=== PATIENT | male | born 1940 | race Caucasian/White ===

== ENCOUNTER 2018-05-26 22:24 | Emergency (ER) | payer MEDICARE ==
[~2018-05-26] VITALS: Ht 177.8 cm; Wt 96.9 kg
[~2018-05-26 22:24] MED LIST: ENOX30SY10 SQ; NORCO10T PO; RAMI5CAP65 PO; ZOC5T PO
[2018-05-26 23:30] VITALS: BP 151/88
[2018-05-26 23:47] LABS: BASOPHILS % (AUTO) 0.3 % (0-1); EOSINOPHILS # (AUTO) 0.4 X10'3 (0-0.9); HEMATOCRIT 43.3 % (42.0-52.0); HEMOGLOBIN 14.4 g/dl (14.0-17.9); LYMPHOCYTES # (AUTO) 1.7 X10'3 (1.1-4.8); LYMPHOCYTES % (AUTO) 14.2 % (21-51); MEAN CORPUSCULAR HEMOGLOBIN 32.7 PG (27.0-31.0); MEAN CORPUSCULAR HGB CONC 33.3 % (33.0-36.5); MEAN PLATELET VOLUME 8.7 FL (7.4-10.4); MONOCYTES # (AUTO) 0.7 X10'3 (0-0.9); MONOCYTES % (AUTO) 5.5 % (2-12); NEUTROPHILS # (AUTO) 9.3 X10'3 (1.8-7.7); PLATELET COUNT 217 X10'3 (140-440); RED BLOOD COUNT 4.42 X10'6 (4.70-6.10); RED CELL DISTRIBUTION WIDTH 13.1 % (11.5-14.5)
[2018-05-26 23:58] LABS: ALKALINE PHOSPHATASE 72 IU/L (46-116)
[2018-05-27] MEDS ORDERED: dexamethasone sod phosphate 10mg/ml inj IV STA (00:05)
[2018-05-27] MEDS ORDERED: CefTRIAXone 2gm/D5W 50ml 50 ML IV ONE (00:05)
[2018-05-27] MEDS ORDERED: ipratropium/albuterol 3ml nebule NEB ONE (00:05)
[2018-05-27] MEDS ORDERED: DOXY100C43 PO (00:07)
[2018-05-27] MEDS ORDERED: ALBU8HFA PO (00:07)
[2018-05-27] MEDS ORDERED: PRED20TA PO (00:07)
[2018-05-27 00:08] LABS: ALANINE AMINOTRANSFERASE 31 U/L (12-78); ALBUMIN 3.6 G/DL (3.4-5.0); ALBUMIN/GLOBULIN RATIO 0.9 (1.1-1.5); ANION GAP 7 (8-16); ASPARTATE AMINO TRANSFERASE 17 U/L (10-37); BILIRUBIN,TOTAL 0.3 MG/DL (0.1-1.0); BLOOD UREA NITROGEN 16 MG/DL (7-18); BUN/CREATININE RATIO 16.2 (5.4-32.0); CALCIUM 8.7 MG/DL (8.5-10.1); CHLORIDE 102 MMOL/L (99-107); CREATININE 0.99 MG/DL (0.60-1.10); GLUCOSE 129 MG/DL (70-104); POTASSIUM 3.8 MMOL/L (3.5-5.1); SODIUM 142 MMOL/L (135-145); TOTAL CARBON DIOXIDE 32.9 MMOL/L (24-32); TOTAL PROTEIN 7.5 G/DL (6.4-8.2); eGFR 73 ML/MIN
== END 2018-05-27 02:03 | disposition home or self-care (01) ==
LOC: ER 22:25
DX: J18.9 Pneumonia, unspecified organism (principal); E78.00 Pure hypercholesterolemia, unspecified; I10 Essential (primary) hypertension; Z79.899 Other long term (current) drug therapy
CPT/HCPCS: 36415; 71046; 80053; 83605; 85025; 87040; 94640; 94760; 96365; 96375; 99284; J0696; J1100

== ENCOUNTER 2019-11-04 12:15 | Inpatient (IN) | payer MEDICARE ==
[~2019-11-04] VITALS: Ht 177.8 cm; Wt 94.1 kg
[~2019-11-04 12:15] MED LIST changes: +SIMV5TAB58 PO; -ZOC5T PO
[2019-11-04 13:18] LABS: BASOPHILS % (AUTO) 0.2 % (0-1); EOSINOPHILS % (AUTO) 0 % (0-6); HEMATOCRIT 41.1 % (42.0-52.0); HEMOGLOBIN 14.2 g/dl (14.0-17.9); LYMPHOCYTES # (AUTO) 0.9 X10'3 (1.1-4.8); MEAN CORPUSCULAR HEMOGLOBIN 33.2 PG (27.0-31.0); MEAN CORPUSCULAR HGB CONC 34.6 g/dL (33.0-36.5); MEAN PLATELET VOLUME 9.4 FL (7.4-10.4); MONOCYTES # (AUTO) 0.4 X10'3 (0-0.9); MONOCYTES % (AUTO) 5.4 % (2-12); NEUTROPHILS # (AUTO) 6.8 X10'3 (1.8-7.7); NEUTROPHILS % (AUTO) 83.4 % (42-75); PLATELET COUNT 151 X10'3 (140-440); RED BLOOD COUNT 4.28 X10'6 (4.70-6.10); WHITE BLOOD COUNT 8.1 X10'3 (4.5-11.0)
[2019-11-04 13:28] LABS: PARTIAL THROMBOPLASTIN TIME 37 SECONDS (22-32)
[2019-11-04 13:29] LABS: ALANINE AMINOTRANSFERASE 35 U/L (12-78); ALBUMIN 3.6 G/DL (3.4-5.0); ALBUMIN/GLOBULIN RATIO 0.8 (1.1-1.5); ALKALINE PHOSPHATASE 52 IU/L (46-116); ANION GAP 7 (8-16); ASPARTATE AMINO TRANSFERASE 38 U/L (10-37); BILIRUBIN,TOTAL 0.7 MG/DL (0.1-1.0); BLOOD UREA NITROGEN 20 MG/DL (7-18); BUN/CREATININE RATIO 16.5 (5.4-32.0); CALCIUM 8.8 MG/DL (8.5-10.1); CHLORIDE 95 MMOL/L (99-107); CREATININE 1.21 MG/DL (0.60-1.10); GLUCOSE 114 MG/DL (70-104); POTASSIUM 3.5 MMOL/L (3.5-5.1); SODIUM 132 MMOL/L (135-145); TOTAL CARBON DIOXIDE 29.6 MMOL/L (24-32); eGFR 58 ML/MIN
[2019-11-04] MEDS ORDERED: ASPI-1265 PO (14:28)
[2019-11-04] MEDS ORDERED: OMEG-79 PO (14:28)
[2019-11-04] MEDS ORDERED: acetaminophen 325mg tablet PO ONE (14:30)
[2019-11-04] MEDS ORDERED: HCTZ25T PO (14:34)
--- NOTE | 2019-11-04 14:46 | NUR ---
Spoke with Holly Savage request O2 be set up so patient can be discharged home from ED, will attempt to obtain Home O2, patient does not have underlying chronic respiratory condition
--- NOTE | 2019-11-04 14:47 | NUR ---
Spoke with Xander explained that patient did not have qualifying O2sat at this time to qualify for home O2, asked to attempt to ambulate patient to see if O2sats drop below 88%, states patient is being admitted
--- NOTE | 2019-11-04 15:06 | NUR ---
Notified by Xander that patient is discharging home and requires home O2, spoke with Aline at [facility] and patient will qualify for home O2 without needing underlying respiratory condition due to COVID, recommends patient to have triology, working on orders
--- NOTE | 2019-11-04 16:05 | NUR ---
Jj coker [facility] in ER at Bed 2 providing teaching and O2 equipment for home use
--- NOTE | 2019-11-04 16:09 | NUR ---
Per Holly Sullivan, per Dr. Pitt patient will be admitted
[2019-11-04 16:20] LABS: ABG BASE EXCESS 2.5 mmol/L (-2.0-3.0); ABG HCO3 25.9 mmol/L (22.0-26.0); ABG OXYGEN SATURATION 88.7 % (95-98); ABG PCO2 (T) 36.8 mmHg (35.0-45.0); ABG PO2 (T) 50.4 mmHg (83-108); ALLEN'S TEST POSITIVE; FCOHb 0.9 % (0.5-1.5); FO2Hb 87.9 % (94-100); PATIENT TEMPERATURE 37.4; TOTAL HEMOGLOBIN 14.1 G/dl (14.0-17.9)
--- NOTE | 2019-11-04 16:45 | NUR ---
DR AARON AT BEDSIDE EVALUATING PT.
[2019-11-04] MEDS ORDERED: REMDESIVIR INJ 200 MG in normal saline 100ml IV soln 100 ML IV ONE (17:00)
[2019-11-04] MEDS ORDERED: magnesium 2GM in 50ml NS 50 ML IV PRN (17:05)
[2019-11-04] MEDS ORDERED: albuterol 2.5 MG/3 ML nebule NEB PRN (17:05)
[2019-11-04] MEDS ORDERED: magnesium Cl slow-release 64mg tablet PO PRN (17:05)
[2019-11-04] MEDS ORDERED: potassium Cl 20 mEq SR tablet PO PRN (17:05)
[2019-11-04] MEDS ORDERED: ondansetron/PF 4mg/2ml inj IV PRN (17:05)
[2019-11-04] MEDS ORDERED: potassium CL 10mEq/100ml bag 100 ML IV PRN ×2 (17:05)
[2019-11-04] MEDS ORDERED: magnesium 4gm in 100ml NS 100 ML IV PRN (17:05)
[2019-11-04 18:04] LABS: C-REACTIVE PROTEIN 20.88 MG/DL (0.0-0.5)
[2019-11-04 18:18] LABS: LACTATE DEHYDROGENASE 364 U/L (85-227)
[2019-11-04] MEDS: normal saline 1000ml 1,000 ML IV SCH (18:26)
--- NOTE | 2019-11-04 18:55 | NUR ---
RECEIVED PT FROM ER VIA ZANDRA RUDOLPH TO ROOM. ORIENTED TO ROM AND ROUTINE. ALERT AND ORIENTED. PT EDUCATED ON COVID ROOM AND NEG PRESSURE AIR SEUN. ISOLATION INSTRUCTIONS GIVEN. PT HAS SOME SOB WITH ACTIVITY. DRY COUGH. Addendum: 11/04/19 at 2057 by Davey Vazquez RN Amended: Links added.
[2019-11-04 19:15] VITALS: BP 133/72
--- NOTE | 2019-11-04 19:20 | NUR ---
pt amb in room ad ben, turns self iwth ease, skin check done, groin bilat redddened, gluteal fold reddened, pt states will clean self, wipes given. pt turns self freq. pt does not want to change pants, leaving pants on from home. 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 belongigns glasses wallte, denies to have locked in safe, no dentures, has cell phone no bookmaker's clerk, shirt pants, shoes socks. preffered pharmacy is [facility]. Addendum: 11/04/19 at 2014 by Davey Vazquez RN Amended: Links added.
[2019-11-04] MEDS: K and/or MAG REPLACEMENT MC SCH (20:00)
--- NOTE | 2019-11-04 20:15 | NUR ---
PHARMACY CALLED PT IS TO RECEIVE REMDESIVIR TONIGHT. MEDICATION IS NOT AVAILABLE AT THIS TIME. DR AARON IS TO BRING MEDICATION TO PHARMACY AND THEY WILL NOTIFY ME AND DISPENSE MED. DR. AARON IS AWARE. [facility]ARAM[facility] STATES WILL BE LATER TONIGHT.
[2019-11-04] MEDS: atorvastatin 10mg tablet PO SCH (20:21)
[2019-11-04] MEDS: enoxaparin 40mg/0.4ml syringe SUBCUT SCH (20:22)
--- NOTE | 2019-11-04 20:51 | NUR ---
ACOUSTICAL TILE DRILL PRESS OPERATORSHEBA MONET CALLED REPORT [phone] PT ADMIT ORDERS ARE FOR TELE PCU NO 3 SURGICAL, STATES PER STEM TEACHER PT TO BE ADMITTED TO SURGICAL. STEM TEACHER, SLATE ROOFER HELPER NOTIFIED, SLATE ROOFER HELPER NICOLE SPOKE WITH KOBE STEM TEACHER, THERE ARE NO COVID ROOM AVAILABLE ON TELE, SO PT IS TO BE ADMITTED HERE. ASKED THAT MD BE NOTIFIED TO HAVE ORDER CHANGED. WHEN TALKING TO CHIKI ON PHONE ASKED THAT SHE NOTIFY HOSPITALIST THAT NO ROOMS AVAILABLE ON TELE AND PT BEING TRANSFERRED TO A LOWER LEVEL OF CARE. RN STATES SHE WILL NOTIFY MD PRIOR TO TRANSFERING. THERE WAS NO NOTE MADE AND ORDER HAS NOT BEEN CHANGED. DR. MEDELLIN WAS NOTIFIED MAHI. Addendum: 11/04/19 at 2055 by Davey Vazquez RN Amended: Links added.
[2019-11-04 22:15] VITALS: BP 137/67
--- NOTE | 2019-11-04 22:20 | NUR ---
Pt had gotten out of bed amb to bathroom, states forgot about iv and pulled out, cannula intact. pt has bruise to iv site, covered with dressing, pt blood on arms, gown all over bathroom floor. partial bath given. Addendum: 11/05/19 at 0049 by Davey Vazquez RN Amended: Links added.
[2019-11-04] MEDS: acetaminophen 325mg tablet PO PRN (22:26)
--- NOTE | 2019-11-04 22:44 | NUR ---
pt did not have d dimer drawn in er today, lab is not available. Unable to get labs at this time, pt is difficult iv start. will attempt again. Addendum: 11/04/19 at 2245 by Davey Vazquez RN Amended: Links added.
[2019-11-04 23:20] VITALS: BP 109/64
[2019-11-05 04:00] VITALS: BP 124/69
[2019-11-05 04:21] LABS: BASOPHILS % (AUTO) 0.3 % (0-1); EOSINOPHILS % (AUTO) 0 % (0-6); HEMATOCRIT 38.1 % (42.0-52.0); HEMOGLOBIN 13.1 g/dl (14.0-17.9); LYMPHOCYTES # (AUTO) 1.3 X10'3 (1.1-4.8); LYMPHOCYTES % (AUTO) 18.4 % (21-51); MEAN CORPUSCULAR HEMOGLOBIN 33.2 PG (27.0-31.0); MEAN CORPUSCULAR HGB CONC 34.4 g/dL (33.0-36.5); MEAN CORPUSCULAR VOLUME 96.3 FL (78-98); MEAN PLATELET VOLUME 8.6 FL (7.4-10.4); MONOCYTES # (AUTO) 0.5 X10'3 (0-0.9); MONOCYTES % (AUTO) 7.8 % (2-12); NEUTROPHILS # (AUTO) 5.1 X10'3 (1.8-7.7); NEUTROPHILS % (AUTO) 73.5 % (42-75); PLATELET COUNT 148 X10'3 (140-440); RED BLOOD COUNT 3.95 X10'6 (4.70-6.10); RED CELL DISTRIBUTION WIDTH 13.2 % (11.5-14.5)
[2019-11-05 04:25] LABS: ANION GAP 6 (8-16); BLOOD UREA NITROGEN 21 MG/DL (7-18); BUN/CREATININE RATIO 18.3 (5.4-32.0); CALCIUM 8.1 MG/DL (8.5-10.1); CHLORIDE 98 MMOL/L (99-107); CREATININE 1.15 MG/DL (0.60-1.10); GLUCOSE 107 MG/DL (70-104); POTASSIUM 3.4 MMOL/L (3.5-5.1); SODIUM 134 MMOL/L (135-145); TOTAL CARBON DIOXIDE 29.6 MMOL/L (24-32); eGFR 62 ML/MIN
[2019-11-05 04:28] LABS: D-DIMER 2.41 MG/L FEU (0-0.50)
[2019-11-05] MEDS: acetaminophen 325mg tablet PO PRN ×2 (04:34→12:38)
--- NOTE | 2019-11-05 06:43 | NUR ---
Problems reprioritized. Patient report given, questions answered & plan of care reviewed with SHEBA PRATHER. Addendum: 11/05/19 at 0644 by Davey Vazquez RN Amended: Links added.
--- NOTE | 2019-11-05 07:09 | NUR ---
Patient in room [facility] 341. I have received report from Yumiko SCRUGGS and had the opportunity to ask questions and assume patient care.
[2019-11-05] MEDS: K and/or MAG REPLACEMENT MC SCH ×2 (08:00→20:00)
[2019-11-05] MEDS: HYDROchlorothiazide 25mg tablet PO SCH (08:55)
[2019-11-05] MEDS: aspirin 81mg tab.chew PO SCH (08:55)
[2019-11-05] MEDS: omega-3 acid ethyl esters 1GM capsule PO SCH (08:55)
[2019-11-05] MEDS: lisinopril 10 MG tablet PO SCH (08:55)
[2019-11-05] MEDS: enoxaparin 40mg/0.4ml syringe SUBCUT SCH (08:58)
[2019-11-05] MEDS: potassium Cl 20 mEq SR tablet PO PRN ×3 (09:05→21:02)
[2019-11-05 09:11] VITALS: BP 133/62
[2019-11-05] MEDS: normal saline 1000ml 1,000 ML IV SCH ×2 (09:29→15:28)
--- NOTE | 2019-11-05 13:53 | NUR ---
PAGER ID: [phone] MESSAGE: Sung surg [id number] Re: Patients in 340b and 341. Thanks Sung.
[2019-11-05] MEDS: guaiFENesin/codeine phos 10ml UD oral syrup PO PRN (17:14)
--- NOTE | 2019-11-05 18:26 | NUR ---
Problems reprioritized. Patient report given, questions answered & plan of care reviewed with Josey SCRUGGS.
--- NOTE | 2019-11-05 19:46 | NUR ---
Patient in room [facility] 341. I have received report from SHEBA Almaraz and had the opportunity to ask questions and assume patient care. Addendum: 11/05/19 at 1946 by Josey Ceballos RN Amended: Links added.
[2019-11-05 21:00] VITALS: BP 123/74
[2019-11-05] MEDS: REMDESIVIR IV SCH (21:02)
[2019-11-05] MEDS: NS IV SCH (21:02)
[2019-11-05] MEDS: atorvastatin 10mg tablet PO SCH (21:02)
[2019-11-05] MEDS: sod chloride 0.9% 10ml flush syringe IV SCH (21:03)
[2019-11-05 22:26] VITALS: BP 150/71
[2019-11-06 02:40] LABS: BASOPHILS % (AUTO) 0.6 % (0-1); EOSINOPHILS % (AUTO) 0 % (0-6); HEMOGLOBIN 12.5 g/dl (14.0-17.9); LYMPHOCYTES % (AUTO) 18.5 % (21-51); MEAN CORPUSCULAR HEMOGLOBIN 33.1 PG (27.0-31.0); MEAN CORPUSCULAR HGB CONC 34.6 g/dL (33.0-36.5); MEAN CORPUSCULAR VOLUME 95.5 FL (78-98); MEAN PLATELET VOLUME 8.5 FL (7.4-10.4); MONOCYTES # (AUTO) 0.5 X10'3 (0-0.9); MONOCYTES % (AUTO) 8.6 % (2-12); NEUTROPHILS # (AUTO) 3.9 X10'3 (1.8-7.7); NEUTROPHILS % (AUTO) 72.3 % (42-75); PLATELET COUNT 156 X10'3 (140-440); RED BLOOD COUNT 3.76 X10'6 (4.70-6.10); RED CELL DISTRIBUTION WIDTH 12.9 % (11.5-14.5); WHITE BLOOD COUNT 5.4 X10'3 (4.5-11.0)
[2019-11-06 02:42] LABS: ALBUMIN 2.6 G/DL (3.4-5.0); ANION GAP 8 (8-16); BLOOD UREA NITROGEN 18 MG/DL (7-18); BUN/CREATININE RATIO 17.8 (5.4-32.0); CALCIUM 7.9 MG/DL (8.5-10.1); CHLORIDE 100 MMOL/L (99-107); CREATININE 1.01 MG/DL (0.60-1.10); GLUCOSE 106 MG/DL (70-104); MAGNESIUM 2.1 MG/DL (1.5-2.4); POTASSIUM 3.6 MMOL/L (3.5-5.1); SODIUM 134 MMOL/L (135-145); TOTAL CARBON DIOXIDE 26.2 MMOL/L (24-32); eGFR 71 ML/MIN
--- NOTE | 2019-11-06 06:09 | NUR ---
Problems reprioritized. Patient report given, questions answered & plan of care reviewed with SHEBA Almaraz. Addendum: 11/06/19 at 0609 by Josey Ceballos RN Amended: Links added.
--- NOTE | 2019-11-06 06:16 | NUR ---
Patient in room [facility] 341. I have received report from Josey SCRUGGS and had the opportunity to ask questions and assume patient care.
[2019-11-06 07:00] VITALS: BP 123/67
[2019-11-06] MEDS: K and/or MAG REPLACEMENT MC SCH ×2 (08:00→20:00)
[2019-11-06] MEDS: HYDROchlorothiazide 25mg tablet PO SCH (09:06)
[2019-11-06] MEDS: aspirin 81mg tab.chew PO SCH (09:06)
[2019-11-06] MEDS: lisinopril 10 MG tablet PO SCH (09:06)
[2019-11-06] MEDS: enoxaparin 40mg/0.4ml syringe SUBCUT SCH (09:07)
[2019-11-06] MEDS: omega-3 acid ethyl esters 1GM capsule PO SCH (09:07)
[2019-11-06 12:15] LABS: ABG BASE EXCESS 1.7 mmol/L (-2.0-3.0); ABG HCO3 24.9 mmol/L (22.0-26.0); ABG OXYGEN SATURATION 93.4 % (95-98); ABG PCO2 (T) 34.7 mmHg (35.0-45.0); ABG PO2 (T) 64.7 mmHg (83-108); ALLEN'S TEST POSITIVE; FO2Hb 93.4 % (94-100); TOTAL HEMOGLOBIN 12.8 G/dl (14.0-17.9)
[2019-11-06 13:03] VITALS: BP 112/63
--- NOTE | 2019-11-06 18:00 | NUR ---
Patient in room [facility] 341. I have received report from Sung SCRUGGS and had the opportunity to ask questions and assume patient care.
--- NOTE | 2019-11-06 18:27 | NUR ---
Problems reprioritized. Patient report given, questions answered & plan of care reviewed with Jessika SCRUGGS.
[2019-11-06 19:11] VITALS: BP 132/65
[2019-11-06] MEDS: atorvastatin 10mg tablet PO SCH (21:00)
[2019-11-06] MEDS: REMDESIVIR IV SCH (22:27)
[2019-11-06] MEDS: NS IV SCH (22:27)
[2019-11-06] MEDS: sod chloride 0.9% 10ml flush syringe IV SCH (23:40)
[2019-11-07 00:06] VITALS: BP 118/62
--- NOTE | 2019-11-07 06:13 | NUR ---
Problems reprioritized. Patient report given, questions answered & plan of care reviewed with Manju SCRUGGS.
[2019-11-07 06:16] LABS: BASOPHILS % (AUTO) 0.5 % (0-1); EOSINOPHILS % (AUTO) 0.4 % (0-6); HEMATOCRIT 37.4 % (42.0-52.0); HEMOGLOBIN 13.1 g/dl (14.0-17.9); LYMPHOCYTES # (AUTO) 1.7 X10'3 (1.1-4.8); LYMPHOCYTES % (AUTO) 32.3 % (21-51); MEAN CORPUSCULAR HEMOGLOBIN 33.1 PG (27.0-31.0); MEAN CORPUSCULAR VOLUME 94.8 FL (78-98); MEAN PLATELET VOLUME 8.3 FL (7.4-10.4); MONOCYTES # (AUTO) 0.6 X10'3 (0-0.9); MONOCYTES % (AUTO) 11.4 % (2-12); NEUTROPHILS # (AUTO) 2.9 X10'3 (1.8-7.7); NEUTROPHILS % (AUTO) 55.4 % (42-75); PLATELET COUNT 188 X10'3 (140-440); RED BLOOD COUNT 3.94 X10'6 (4.70-6.10); RED CELL DISTRIBUTION WIDTH 13.4 % (11.5-14.5); WHITE BLOOD COUNT 5.2 X10'3 (4.5-11.0)
[2019-11-07 06:25] LABS: ALBUMIN 2.7 G/DL (3.4-5.0); ANION GAP 7 (8-16); BLOOD UREA NITROGEN 18 MG/DL (7-18); BUN/CREATININE RATIO 19.8 (5.4-32.0); C-REACTIVE PROTEIN 9.47 MG/DL (0.0-0.5); CALCIUM 8.2 MG/DL (8.5-10.1); CHLORIDE 100 MMOL/L (99-107); CREATININE 0.91 MG/DL (0.60-1.10); GLUCOSE 98 MG/DL (70-104); LACTATE DEHYDROGENASE 392 U/L (85-227); POTASSIUM 3.4 MMOL/L (3.5-5.1); SODIUM 135 MMOL/L (135-145); TOTAL CARBON DIOXIDE 28.5 MMOL/L (24-32); eGFR 81 ML/MIN
--- NOTE | 2019-11-07 06:29 | NUR ---
Patient in room [facility]ANI[facility] 341. I have received report from SHEBA Rosen and had the opportunity to ask questions and assume patient care.
[2019-11-07] MEDS: K and/or MAG REPLACEMENT MC SCH ×2 (08:00→19:04)
[2019-11-07 08:19] VITALS: BP 121/85
[2019-11-07] MEDS: potassium Cl 20 mEq SR tablet PO PRN ×2 (08:27→13:11)
[2019-11-07] MEDS: omega-3 acid ethyl esters 1GM capsule PO SCH (08:27)
[2019-11-07] MEDS: lisinopril 10 MG tablet PO SCH (08:27)
[2019-11-07] MEDS: HYDROchlorothiazide 25mg tablet PO SCH (08:27)
[2019-11-07] MEDS: aspirin 81mg tab.chew PO SCH (08:27)
[2019-11-07] MEDS: enoxaparin 40mg/0.4ml syringe SUBCUT SCH (08:28)
[2019-11-07] MEDS: guaiFENesin/codeine phos 10ml UD oral syrup PO PRN ×2 (13:15→22:05)
--- NOTE | 2019-11-07 13:15 | NUR ---
Initial: Pt admit with COVID-19 with hypoxemia. Per MD notes pt feeling better, breathing easier, and fever has improved. Pt on a regular diet documented with 75-100% PO intake throughout LOS meeting nutrient needs. LBM 11/05. No edema or wounds. No nutrition diagnosis at this time. Will continue to follow. Recommendations: 1) Continue regular diet 2) Bowel care PRN 3) Scaled wt per rx Addendum: 11/07/19 at [address] Amended: Links added.
[2019-11-07 13:21] VITALS: BP 113/72
[2019-11-07] MEDS ORDERED: potassium Cl 20 mEq SR tablet PO PRN ×2 (17:10)
[2019-11-07] MEDS ORDERED: magnesium Cl slow-release 64mg tablet PO PRN (17:10)
[2019-11-07] MEDS ORDERED: potassium CL 10mEq/100ml bag 100 ML IV PRN (17:10)
[2019-11-07] MEDS ORDERED: magnesium 4gm in 100ml NS 100 ML IV PRN (17:10)
[2019-11-07 17:29] VITALS: BP 118/66
--- NOTE | 2019-11-07 18:15 | NUR ---
Problems reprioritized. Patient report given, questions answered & plan of care reviewed with SHEBA Mcgee.
--- NOTE | 2019-11-07 20:12 | NUR ---
pt in no apparent distress, states he's feeling better since being admitted. dinner tray provided. plan of care for evening reviewed, will continue to monitor
[2019-11-07] MEDS: atorvastatin 10mg tablet PO SCH (21:00)
[2019-11-07] MEDS: NS IV SCH (22:11)
[2019-11-07] MEDS: REMDESIVIR IV SCH (22:11)
[2019-11-07] MEDS: sod chloride 0.9% 10ml flush syringe IV SCH (23:53)
[2019-11-08] VITALS: BP 97/62
[2019-11-08 00:24] VITALS: BP 98/66
--- NOTE | 2019-11-08 00:43 | NUR ---
patient in no distress, resting comfortably, no needs at this time. VSS, will continue to monitor
[2019-11-08] MEDS: guaiFENesin/codeine phos 10ml UD oral syrup PO PRN ×2 (05:20→21:30)
--- NOTE | 2019-11-08 05:32 | NUR ---
IV initiated, morning labs drawn. conferred needs with patient, none identified at this time. will continue to monitor
[2019-11-08 06:08] LABS: BASOPHILS % (AUTO) 0.5 % (0-1); EOSINOPHILS # (AUTO) 0.1 X10'3 (0-0.9); EOSINOPHILS % (AUTO) 1.9 % (0-6); HEMATOCRIT 39.8 % (42.0-52.0); HEMOGLOBIN 13.8 g/dl (14.0-17.9); LYMPHOCYTES # (AUTO) 1.5 X10'3 (1.1-4.8); LYMPHOCYTES % (AUTO) 32.1 % (21-51); MEAN CORPUSCULAR HEMOGLOBIN 32.7 PG (27.0-31.0); MEAN CORPUSCULAR HGB CONC 34.6 g/dL (33.0-36.5); MEAN CORPUSCULAR VOLUME 94.5 FL (78-98); MEAN PLATELET VOLUME 8.2 FL (7.4-10.4); MONOCYTES # (AUTO) 0.7 X10'3 (0-0.9); MONOCYTES % (AUTO) 14.5 % (2-12); NEUTROPHILS # (AUTO) 2.5 X10'3 (1.8-7.7); PLATELET COUNT 206 X10'3 (140-440); RED BLOOD COUNT 4.21 X10'6 (4.70-6.10); RED CELL DISTRIBUTION WIDTH 13.3 % (11.5-14.5); WHITE BLOOD COUNT 4.8 X10'3 (4.5-11.0)
[2019-11-08 06:09] LABS: ALANINE AMINOTRANSFERASE 67 U/L (12-78); ALBUMIN 2.7 G/DL (3.4-5.0); ALBUMIN/GLOBULIN RATIO 0.8 (1.1-1.5); ALKALINE PHOSPHATASE 48 IU/L (46-116); ANION GAP 5 (8-16); ASPARTATE AMINO TRANSFERASE 54 U/L (10-37); BILIRUBIN,TOTAL 0.4 MG/DL (0.1-1.0); BLOOD UREA NITROGEN 18 MG/DL (7-18); BUN/CREATININE RATIO 18.9 (5.4-32.0); CALCIUM 8.2 MG/DL (8.5-10.1); CHLORIDE 103 MMOL/L (99-107); CREATININE 0.95 MG/DL (0.60-1.10); GLUCOSE 109 MG/DL (70-104); LACTATE DEHYDROGENASE 356 U/L (85-227); POTASSIUM 3.7 MMOL/L (3.5-5.1); SODIUM 139 MMOL/L (135-145); TOTAL CARBON DIOXIDE 31.3 MMOL/L (24-32); TOTAL PROTEIN 6.3 G/DL (6.4-8.2); eGFR 77 ML/MIN
--- NOTE | 2019-11-08 06:28 | NUR ---
Patient in room [facility] 341. I have received report from SHEBA Mcgee and had the opportunity to ask questions and assume patient care.
[2019-11-08] MEDS: K and/or MAG REPLACEMENT MC SCH ×2 (06:38→19:48)
[2019-11-08 08:35] VITALS: BP 110/77
[2019-11-08] MEDS: aspirin 81mg tab.chew PO SCH (08:37)
[2019-11-08] MEDS: HYDROchlorothiazide 25mg tablet PO SCH (08:37)
[2019-11-08] MEDS: enoxaparin 40mg/0.4ml syringe SUBCUT SCH (08:38)
[2019-11-08] MEDS: omega-3 acid ethyl esters 1GM capsule PO SCH (08:38)
[2019-11-08] MEDS: lisinopril 10 MG tablet PO SCH (08:38)
[2019-11-08 12:00] VITALS: BP 114/70
--- NOTE | 2019-11-08 18:26 | NUR ---
Received report from primary care nurse Manju SCRUGGS. Assumed patient care. Patient is awake and alert on room air watching television in the recliner. In no apparent distress. Denies pain or SOB at this time. Call light and items of frequent use within reach. Will continue to monitor for changes.
[2019-11-08 18:28] VITALS: BP 114/68
--- NOTE | 2019-11-08 18:30 | NUR ---
Problems reprioritized. Patient report given, questions answered & plan of care reviewed with SHEBA [place].
[2019-11-08] MEDS: acetaminophen 325mg tablet PO PRN (20:45)
[2019-11-08] MEDS: atorvastatin 10mg tablet PO SCH (20:45)
[2019-11-08] MEDS: NS IV SCH (21:30)
[2019-11-08] MEDS: REMDESIVIR IV SCH (21:30)
[2019-11-08] MEDS: sod chloride 0.9% 10ml flush syringe IV SCH (22:48)
[2019-11-09] VITALS: BP 97/62
[2019-11-09 03:52] LABS: BASOPHILS # (AUTO) 0.1 X10'3 (0-0.2); BASOPHILS % (AUTO) 1.2 % (0-1); EOSINOPHILS # (AUTO) 0.3 X10'3 (0-0.9); HEMOGLOBIN 13.6 g/dl (14.0-17.9); LYMPHOCYTES # (AUTO) 2.3 X10'3 (1.1-4.8); LYMPHOCYTES % (AUTO) 36.6 % (21-51); MEAN CORPUSCULAR HEMOGLOBIN 32.3 PG (27.0-31.0); MEAN CORPUSCULAR VOLUME 95.1 FL (78-98); MEAN PLATELET VOLUME 7.8 FL (7.4-10.4); MONOCYTES # (AUTO) 0.8 X10'3 (0-0.9); MONOCYTES % (AUTO) 12.3 % (2-12); NEUTROPHILS # (AUTO) 2.9 X10'3 (1.8-7.7); NEUTROPHILS % (AUTO) 45.9 % (42-75); PLATELET COUNT 225 X10'3 (140-440); RED BLOOD COUNT 4.21 X10'6 (4.70-6.10); RED CELL DISTRIBUTION WIDTH 12.9 % (11.5-14.5); WHITE BLOOD COUNT 6.4 X10'3 (4.5-11.0)
[2019-11-09 04:02] LABS: ALBUMIN 2.8 G/DL (3.4-5.0); ANION GAP 3 (8-16); BLOOD UREA NITROGEN 20 MG/DL (7-18); BUN/CREATININE RATIO 19.6 (5.4-32.0); CALCIUM 8.7 MG/DL (8.5-10.1); CHLORIDE 105 MMOL/L (99-107); CREATININE 1.02 MG/DL (0.60-1.10); GLUCOSE 108 MG/DL (70-104); POTASSIUM 3.8 MMOL/L (3.5-5.1); SODIUM 142 MMOL/L (135-145); TOTAL CARBON DIOXIDE 33.7 MMOL/L (24-32); eGFR 71 ML/MIN
--- NOTE | 2019-11-09 06:25 | NUR ---
Reported off to Sung RN. Patient is awake and alert on room air. In no apparent distress. Call light and items of frequent use within reach.
--- NOTE | 2019-11-09 06:30 | NUR ---
Patient in room [facility] 341. I have received report from Lizett SCRUGGS and had the opportunity to ask questions and assume patient care.
[2019-11-09] MEDS: K and/or MAG REPLACEMENT MC SCH (08:00)
[2019-11-09] MEDS: aspirin 81mg tab.chew PO SCH (08:33)
[2019-11-09] MEDS: HYDROchlorothiazide 25mg tablet PO SCH (08:33)
[2019-11-09] MEDS: omega-3 acid ethyl esters 1GM capsule PO SCH (08:33)
[2019-11-09] MEDS: lisinopril 10 MG tablet PO SCH (08:34)
[2019-11-09] MEDS: enoxaparin 40mg/0.4ml syringe SUBCUT SCH (08:34)
[2019-11-09 08:56] VITALS: BP 116/66
--- NOTE | 2019-11-09 10:00 | NUR ---
Patient discharge teaching done in room, non new medications were added on to patient and patient understand that he is supposed to follow up with [facility] and find out details of his isolation. Patient iv taken out at this time. canula was whole and intact upon removal. patient taken out in a wheel chair by RN and patient got into private vehicle upon leaving lobby.
--- NOTE | 2019-11-20 10:12 | NUR ---
Case Management DC status: Spoke briefly as pt & spouse phone service was poor, and then disconnected. Will try again. pt spouse reports, "he's doing great" Pt states" doing great and I love you all".
== END 2019-11-09 09:40 | disposition home or self-care (01) | DRG 177 ==
LOC: ER 12:15 → UNDOADMIN 17:01 → ED HOLD 17:01 → EDBEDREQ 18:25 → ED HOLD 18:55 → SUR 3N 18:55 → ED HOLD 20:52 → SUR 3N 20:52
PROVIDERS: ADMIT Family Medicine; ATTEND Internal Medicine
DX: U07.1 COVID-19 (principal); J96.01 Acute respiratory failure with hypoxia; R50.81 Fever presenting with conditions classified elsewhere; E86.0 Dehydration; J22 Unspecified acute lower respiratory infection; E78.00 Pure hypercholesterolemia, unspecified; E78.5 Hyperlipidemia, unspecified; Z96.651 Presence of right artificial knee joint; I10 Essential (primary) hypertension; M19.90 Unspecified osteoarthritis, unspecified site; Z79.899 Other long term (current) drug therapy; Z87.01 Personal history of pneumonia (recurrent); Z79.82 Long term (current) use of aspirin
CPT/HCPCS: 36415; 36600; 71045; 80048; 80053; 82803; 83615; 83735; 83880; 85018; 85025; 85379; 85610; 85730; 86140; 87081; 93005; 96365; 99285; G0378; J1650; J7030

== ENCOUNTER 2020-09-02 05:24 | Day surgery (SDC) | payer MEDICARE ==
[2020-08-28 12:08] LABS: BASOPHILS % (AUTO) 0.8 % (0-1); EOSINOPHILS # (AUTO) 0.1 X10'3 (0-0.9); EOSINOPHILS % (AUTO) 2.2 % (0-6); LYMPHOCYTES # (AUTO) 1.7 X10'3 (1.1-4.8); LYMPHOCYTES % (AUTO) 30.5 % (21-51); MEAN CORPUSCULAR HEMOGLOBIN 33.2 PG (27.0-31.0); MEAN CORPUSCULAR HGB CONC 33.7 g/dL (33.0-36.5); MEAN CORPUSCULAR VOLUME 98.6 FL (78-98); MEAN PLATELET VOLUME 8.1 FL (7.4-10.4); MONOCYTES # (AUTO) 0.6 X10'3 (0-0.9); MONOCYTES % (AUTO) 11.5 % (2-12); NEUTROPHILS # (AUTO) 3.1 X10'3 (1.8-7.7); PRE OP HEMOGLOBIN 14.1 g/dL (14.0-17.9); PRE OP PLATELET COUNT 188 X10'3 (140-440); RED BLOOD COUNT 4.26 X10'6 (4.70-6.10)
[2020-08-28 12:20] LABS: PRE OP PROTIME 10.6 SECONDS (9.0-12.0)
[2020-08-28 12:40] LABS: ALBUMIN 3.7 G/DL (3.4-5.0); ALKALINE PHOSPHATASE 71 IU/L (46-116); BLOOD UREA NITROGEN 18 MG/DL (7-18); BUN/CREATININE RATIO 18.2 (5.4-32.0); CHLORIDE 103 MMOL/L (99-107); CREATININE 0.99 MG/DL (0.60-1.10); PRE OP ALT 30 U/L (30-65); PRE OP ANION GAP 9 (8-16); PRE OP AST 22 U/L (10-37); PRE OP BILIRUB, TOTAL 0.6 MG/DL (0.0-1.0); PRE OP GLUCOSE 96 MG/DL (70-104); PRE OP POTASSIUM 3.7 MMOL/L (3.4-5.1); PRE OP SODIUM 141 MMOL/L (135-145); TOTAL CARBON DIOXIDE 28.9 MMOL/L (24-32); TOTAL PROTEIN 7.4 G/DL (6.4-8.2); eGFR 73 ML/MIN
[2020-09-02] VITALS (17 sets, daily range): BP systolic 94–132; BP diastolic 50–88
[~2020-09-02] VITALS: Ht 175.3 cm; Wt 98.0 kg
[~2020-09-02 05:24] MED LIST changes: +ASPI-1265 PO; -ENOX30SY10 SQ; +HYDR25TA5 PO; -NORCO10T PO; +OMEG-79 PO
[2020-09-02] MEDS ORDERED: tranexamic acid 1gm/0.7% sal. 100 ML IV ONE (05:30)
[2020-09-02] MEDS ORDERED: famotidine 20mg tablet PO ONE (05:30)
[2020-09-02] MEDS ORDERED: vancomycin 1,500 MG in NS 300ml IV soln IV ONE (05:30)
[2020-09-02] MEDS ORDERED: cefazolin/dext.iso 2gm/100ml 100 ML IV ONE (05:30)
[2020-09-02] MEDS ORDERED: LIDOcaine 1% (10mg/ml) 2ml vial ONE (05:36)
[2020-09-02] MEDS: ringers solution, lacted 1,000 ML IV SCH ×2 (06:00→12:55)
[2020-09-02] MEDS ORDERED: fentaNYL/PF 50MCG/1 ML 2ML syringe ONE (07:18)
[2020-09-02] MEDS ORDERED: MIDAZolam 1 MG/ML 5ML VIAL ONE (07:19)
[2020-09-02] MEDS ORDERED: ROPIVAcaine 0.5% (5mg/ml) 30ml vial ONE ×2 (07:57→09:19)
[2020-09-02] MEDS ORDERED: propofol inj 20 ML IV ONE (07:57)
[2020-09-02] MEDS ORDERED: LIDOcaine 1%/PF 5ML 10 MG/ML VIAL ONE (07:57)
[2020-09-02] MEDS ORDERED: ketorolac trometh. 30mg/ml inj. ONE (09:19)
[2020-09-02] MEDS ORDERED: cloNIDine hcl/PF 100mcg/ml inj ONE (09:19)
[2020-09-02] MEDS ORDERED: albumin (Human) 5% 250ml 250 ML IV ONE (09:51)
[2020-09-02] MEDS ORDERED: morphine 4 MG/ML inj SYRINge IV PRN (10:55)
[2020-09-02] MEDS ORDERED: ondansetron/PF 4mg/2ml inj IV PRN ×2 (10:55→11:25)
[2020-09-02] MEDS ORDERED: proCHLORperazine 10 MG/2 ml inj IV PRN (10:55)
[2020-09-02] MEDS ORDERED: morphine 2 MG/ML inj. syringe IV PRN (10:55)
[2020-09-02] MEDS ORDERED: ringers solution, lacted 1,000 ML IV SCH (10:55)
[2020-09-02] MEDS ORDERED: meperidine/PF 25mg/ml syringe IV PRN ×3 (10:55)
[2020-09-02] MEDS ORDERED: HYDROmorphone inj. 0.5 MG/0.5 ML DISP.SYRIN IV PRN (11:25)
[2020-09-02] MEDS ORDERED: acetaminophen 325mg tablet PO PRN (11:25)
[2020-09-02] MEDS ORDERED: magnesium hydroxide 30ml (MOM) UD suspension PO PRN (11:25)
[2020-09-02] MEDS ORDERED: bisacodyl 10mg suppository rectal RC PRN (11:25)
[2020-09-02] MEDS ORDERED: diphenhydrAMINE 25mg capsule PO PRN ×2 (11:25)
--- NOTE | 2020-09-02 11:27 | NUR ---
Received from OR via BED IN STABLE CONDITION WITH ICE PACK ON LEFT KNEE AND ARREDONDO CATHETER IN PLACE , accompanied by Anesthesiologist DR. CUMMINGS and report given by Anesthesiolgist. Addendum: 09/02/20 at 1214 by Randi Gómez RN Amended: Links added.
--- NOTE | 2020-09-02 11:27 | NUR ---
SPINAL WAS RESOLVED WHEN PATIENT CAME TO RECOVERY Addendum: 09/02/20 at 1220 by Randi Gómez RN Amended: Links added.
--- NOTE | 2020-09-02 12:08 | NUR ---
Received from OR via BED IN STABLE CONDITON WITH ICE PACK TO LEFT KNEE AND ARREDONDO CATHETER, accompanied by Anesthesiologist DR. LEMUS and report given by Anesthesiolgist. Addendum: 09/02/20 at 1214 by Randi Gómez RN Amended: Links added.
--- NOTE | 2020-09-02 12:45 | NUR ---
Recieved report from Astrid SCRUGGS in the Recovery room.
--- NOTE | 2020-09-02 12:48 | NUR ---
PATIENT TRANSPORTED TO ROOM [facility] AFTER REPORT GIVEN TO SHEBA KAMINSKI. PATIENT WAS IN STABLE CONDTION. Addendum: 09/02/20 at 1249 by Randi Gómez RN Amended: Links added.
[2020-09-02] MEDS: HYDROcodone/acetaminophen 10/325mg tab PO PRN ×2 (13:05→17:11)
[2020-09-02] MEDS: potassium Cl 20mEq in NS 1,000 ML IV SCH (13:09)
[2020-09-02] MEDS: ceFAZolin/D5W- 1GM premix 50 ML IV SCH (16:17)
[2020-09-02] MEDS: aspirin 81mg tablet.DR PO SCH (17:09)
[2020-09-02] MEDS ORDERED: normal saline 250ml IV soln 250 ML IV ONE (18:25)
--- NOTE | 2020-09-02 18:30 | NUR ---
Patient in room ORTHO 4012. I have received report from SHEBA QUAN and had the opportunity to ask questions and assume patient care.
--- NOTE | 2020-09-02 18:33 | NUR ---
Called and spoke with Dr Cardona regarding low urine output for patient. Patient has had 275 ml out in the [place] since arriving on the unit at 1300. gave orders for a bolus of 250 mL of NS and requested to be called if the patient did not maintain urine output of 40 mL per hour.
--- NOTE | 2020-09-02 18:35 | NUR ---
Problems reprioritized. Patient report given, questions answered & plan of care reviewed with SHEBA Sevilla.
[2020-09-02] MEDS ORDERED: normal saline 1000ml 1,000 ML IV ONE (18:40)
[2020-09-02] MEDS ORDERED: vancomycin/NS 1 GM ADD-VANTAGE 250 ML IV SCH (20:00)
[2020-09-02] MEDS ORDERED: sennosides 8.6mg tablet PO SCH (21:00)
[2020-09-03] VITALS (7 sets, daily range): BP systolic 96–147; BP diastolic 38–66
[2020-09-03] MEDS: ceFAZolin/D5W- 1GM premix 50 ML IV SCH (00:29)
[2020-09-03] MEDS: potassium Cl 20mEq in NS 1,000 ML IV SCH ×2 (00:45→14:05)
[2020-09-03] MEDS: HYDROcodone/acetaminophen 10/325mg tab PO PRN ×2 (05:37→17:31)
[2020-09-03 06:59] LABS: BASOPHILS % (AUTO) 0.2 % (0-1); EOSINOPHILS % (AUTO) 0.2 % (0-6); HEMATOCRIT 30.8 % (42.0-52.0); HEMOGLOBIN 10.5 g/dl (14.0-17.9); LYMPHOCYTES # (AUTO) 2.2 X10'3 (1.1-4.8); MEAN CORPUSCULAR HEMOGLOBIN 33.1 PG (27.0-31.0); MEAN CORPUSCULAR HGB CONC 34.2 g/dL (33.0-36.5); MEAN CORPUSCULAR VOLUME 96.9 FL (78-98); MEAN PLATELET VOLUME 8.6 FL (7.4-10.4); MONOCYTES % (AUTO) 10.2 % (2-12); NEUTROPHILS % (AUTO) 68.4 % (42-75); PLATELET COUNT 197 X10'3 (140-440); RED BLOOD COUNT 3.18 X10'6 (4.70-6.10); RED CELL DISTRIBUTION WIDTH 12.9 % (11.5-14.5); WHITE BLOOD COUNT 10.3 X10'3 (4.5-11.0)
--- NOTE | 2020-09-03 07:06 | NUR ---
Patient in room ORTHO 4012B. I have received report from SHEBA Sevilla and had the opportunity to ask questions and assume patient care.
[2020-09-03 07:23] LABS: ALANINE AMINOTRANSFERASE 27 U/L (12-78); ALBUMIN 2.9 G/DL (3.4-5.0); ALKALINE PHOSPHATASE 50 IU/L (46-116); ANION GAP 8 (8-16); ASPARTATE AMINO TRANSFERASE 13 U/L (10-37); BILIRUBIN,TOTAL 0.4 MG/DL (0.1-1.0); BLOOD UREA NITROGEN 20 MG/DL (7-18); BUN/CREATININE RATIO 19.8 (5.4-32.0); CALCIUM 7.9 MG/DL (8.5-10.1); CHLORIDE 108 MMOL/L (99-107); CREATININE 1.01 MG/DL (0.60-1.10); GLUCOSE 120 MG/DL (70-104); POTASSIUM 3.9 MMOL/L (3.5-5.1); SODIUM 142 MMOL/L (135-145); TOTAL CARBON DIOXIDE 26.5 MMOL/L (24-32); TOTAL PROTEIN 5.8 G/DL (6.4-8.2); eGFR 71 ML/MIN
[2020-09-03] MEDS ORDERED: OMEGA-3/DHA/EPA/FISH OIL 1 EACH CAPSULE.DR PO SCH (08:00)
[2020-09-03] MEDS ORDERED: HYDROchlorothiazide 25mg tablet PO SCH (08:00)
[2020-09-03] MEDS: aspirin 81mg tablet.DR PO SCH ×2 (08:21→17:50)
--- NOTE | 2020-09-03 11:17 | NUR ---
Joint Replacement Consult: Pt s/p L knee surgery and seen by KATERINA for written/verbal high protein ed w/ RD contact information and Gerard ONS coupon provided. Pt declined additional protein/ONS at this time. To provide initial assessment on above date. Addendum: 09/03/20 at [address] Amended: Links added.
--- NOTE | 2020-09-03 18:24 | NUR ---
Problems reprioritized. Patient report given, questions answered & plan of care reviewed with SHEBA Sevilla.
--- NOTE | 2020-09-03 19:25 | NUR ---
PT LEFT WITH UNDERSTANDING OF DC DIRECTIONS. IV WAS OUT AND ALL THE BELONGINGS SENT WITH PT. PT DROVE OFF IN 'S CAR AT 1910.
== END 2020-09-03 19:05 | disposition home or self-care (01) ==
LOC: PAS 05:24 → ORTHO 4S 12:54 → PAS 09-03 19:05
PROVIDERS: ATTEND Orthopaedic Surgery
DX: M17.12 Unilateral primary osteoarthritis, left knee (principal); I10 Essential (primary) hypertension; E66.9 Obesity, unspecified; Z68.31 Body mass index [BMI] 31.0-31.9, adult; Z96.651 Presence of right artificial knee joint; Z85.828 Personal history of other malignant neoplasm of skin; Z98.890 Other specified postprocedural states; Z87.891 Personal history of nicotine dependence; G89.18 Other acute postprocedural pain; Z79.01 Long term (current) use of anticoagulants; Z79.899 Other long term (current) drug therapy; Z72.89 Other problems related to lifestyle; Z79.82 Long term (current) use of aspirin
CPT/HCPCS: 27447; 36415; 64447; 76942; 80053; 82948; 85025; 85610; 85730; 86885; 86900; 86901; 86920; 87081; 97110; 97116; 97161; C1713; C1758; C1776; J0690; J0735; J1885; J2001; J2250; J2704; J3010; J3370; J3480; J7030; J7040; J7120; P9045; A6455; A7000; A9272; G0378; J2795

== ENCOUNTER 2021-02-19 05:33 | Day surgery (SDC) | payer MEDICARE ==
[2021-02-13 15:37] LABS: BASOPHILS % (AUTO) 0.5 % (0-1); EOSINOPHILS # (AUTO) 0.1 X10'3 (0-0.9); EOSINOPHILS % (AUTO) 2.3 % (0-6); LYMPHOCYTES # (AUTO) 2.1 X10'3 (1.1-4.8); LYMPHOCYTES % (AUTO) 32.5 % (21-51); MEAN CORPUSCULAR HEMOGLOBIN 32.4 PG (27.0-31.0); MEAN CORPUSCULAR HGB CONC 33.7 g/dL (33.0-36.5); MEAN CORPUSCULAR VOLUME 96.1 FL (78-98); MEAN PLATELET VOLUME 8.6 FL (7.4-10.4); MONOCYTES # (AUTO) 0.6 X10'3 (0-0.9); MONOCYTES % (AUTO) 9.1 % (2-12); NEUTROPHILS # (AUTO) 3.7 X10'3 (1.8-7.7); NEUTROPHILS % (AUTO) 55.6 % (42-75); PRE OP HEMATOCRIT 40.4 % (42.0-52.0); PRE OP HEMOGLOBIN 13.6 g/dL (14.0-17.9); PRE OP PLATELET COUNT 207 X10'3 (140-440); RED CELL DISTRIBUTION WIDTH 13.7 % (11.5-14.5)
[2021-02-13 15:41] LABS: PRE OP PROTIME 10.8 SECONDS (9.0-12.0)
[2021-02-13 15:42] LABS: ALBUMIN 3.8 G/DL (3.4-5.0); ALBUMIN/GLOBULIN RATIO 1.2 (1.1-1.5); ALKALINE PHOSPHATASE 75 IU/L (46-116); BLOOD UREA NITROGEN 17 MG/DL (7-18); BUN/CREATININE RATIO 16.8 (5.4-32.0); CALCIUM 9.2 MG/DL (8.5-10.1); CHLORIDE 107 MMOL/L (99-107); CREATININE 1.01 MG/DL (0.60-1.10); PRE OP ALT 19 U/L (30-65); PRE OP ANION GAP 6 (8-16); PRE OP AST 17 U/L (10-37); PRE OP BILIRUB, TOTAL 0.5 MG/DL (0.0-1.0); PRE OP GLUCOSE 90 MG/DL (70-104); PRE OP POTASSIUM 3.7 MMOL/L (3.4-5.1); PRE OP SODIUM 145 MMOL/L (135-145); TOTAL PROTEIN 7.1 G/DL (6.4-8.2); eGFR 71 ML/MIN
[2021-02-19] VITALS (24 sets, daily range): BP systolic 114–172; BP diastolic 56–92
[~2021-02-19] VITALS: Ht 175.3 cm; Wt 93.8 kg
[~2021-02-19 05:33] MED LIST changes: -ASPI-1265 PO; +ASPI-529 PO; +DOCUMENT DATE & TIME OF BETA-BLOCKER PO ONE; +SIMV-42 PO; -SIMV5TAB58 PO; +SOTA80TA73 PO; +cefazolin/dext.iso 2gm/100ml IV ONE; +famotidine 20mg tablet PO ONE; +ringers solution, lacted 1,000 ML IV SCH
[2021-02-19] MEDS ORDERED: BUPIVAcaine/PF 2.5mg/ml (0.25%) 10ml vial ONE (06:41)
[2021-02-19] MEDS ORDERED: BUPIVAcaine 0.5% inj/PF 30 ML ONE (06:51)
[2021-02-19] MEDS ORDERED: midazolam 1 mg/ML 2ml injection ONE (07:30)
[2021-02-19] MEDS ORDERED: LIDOcaine 2% (20mg/ml) 5ml vial ONE (07:30)
[2021-02-19] MEDS ORDERED: propofol inj 20 ML IV ONE (07:30)
[2021-02-19] MEDS ORDERED: fentaNYL /PF 50mcg/ml 5ml ampule ONE (07:30)
[2021-02-19] MEDS ORDERED: ondansetron/PF 4mg/2ml inj ONE (07:31)
[2021-02-19] MEDS ORDERED: dexamethasone sod phosphate 4mg/ml inj. ONE (07:31)
[2021-02-19] MEDS ORDERED: rocuronium 10mg/ml inj IV ONE ×2 (07:31→09:58)
[2021-02-19] MEDS ORDERED: meperidine/PF 25mg/ml syringe IV PRN ×3 (08:35)
[2021-02-19] MEDS ORDERED: ondansetron/PF 4mg/2ml inj IV PRN (08:35)
[2021-02-19] MEDS ORDERED: morphine 4 MG/ML inj SYRINge IV PRN (08:35)
[2021-02-19] MEDS ORDERED: morphine 2 MG/ML inj. syringe IV PRN (08:35)
[2021-02-19] MEDS ORDERED: proCHLORperazine 10 MG/2 ml inj IV PRN (08:35)
[2021-02-19] MEDS ORDERED: ringers solution, lacted 1,000 ML IV SCH (08:35)
[2021-02-19] MEDS ORDERED: bacitracin 15gm ointment TP ONE (08:40)
[2021-02-19] MEDS ORDERED: acetaminophen 1,000mg/100ml IV 100 ML IV ONE (09:58)
[2021-02-19] MEDS ORDERED: sugammadex 200mg/2ml injection IV ONE (10:57)
--- NOTE | 2021-02-19 11:04 | NUR ---
Received from OR via RONNI , accompanied by Anesthesiologist EMILIANO and report given by Anesthesiolgist. PATIENT WITH 20G PIV IN RIGHT UE RUNNING LR AT 100. DENIES PAIN AT THIS TIME. LOW ABDOMIAL ISLAND DRESSING THAT IS CDI. VSS. 10L MASK ON WITH 100% SATURATIONS. Addendum: 02/19/21 at 1114 by Tip Ramires RN, RN Amended: Links added.
--- NOTE | 2021-02-19 14:45 | NUR ---
CARE TURNED OVER TO Ellis POPE RN. REPORT GIVEN AND ALL QUESTIONS ANSWERED. Addendum: 02/19/21 at 1450 by Tip Ramires RN, RN Amended: Links added.
[2021-02-19] MEDS ORDERED: HYDROcodone/acetaminophen 10/325mg tab PO ONE (15:00)
--- NOTE | 2021-02-19 16:04 | NUR ---
PATIENT HAS VOIDED YELLOW URINE 300 TO 400CC APPROX WITH SOME REDISH TENT BLOOD IN IT. POST VOID RESIDUAL BLADDER SCAN WAS UNDER 20CC. DRESSING 4X4 WAS CHANGED TO SCROTAL AREA WITH SMALL AMOUNT OF RED DRAINAGE ON OLD 4X4. V/S WNL, PIV D/C, I HAVE REVIEWED D/C INSTRUCTIONS WITH PATIENT AND HE HAS VERBALIZED UNDERSTANDING. PATIENT D/C WITH ALL BELONGINGS AND INSTRUCTIONS AND HIS GAVE TRANSPORT HOME.
--- NOTE | 2021-02-19 19:21 | NUR ---
ADDENDUM NOTE. PATIENT CALLED IN REGARDS TO CLOTS IN DRESSING TO TESTICLES WELL WHEN TO RESUME IS FERNIE (WHICH WAS NOT LISTED ON HIM HOME MED REC). MD NEGRON CALLED. FERNIE TO RESTART IN 5 DAYS AND AFTER 3 DAYS HE CAN ALSO RESTART HIS ASPIRIN. CALL MD NEGRON FOR ANY SWELLING OR MAJOR BLEEDING. DISCUSSED ALL THE ABOVE WITH PATIENT AND HE AGREES TO COMPLY. Addendum: 02/19/21 at 1923 by Tip Kwon - SHEBA SCRUGGS Amended: Links added.
== END 2021-02-19 16:04 | disposition home or self-care (01) ==
LOC: PAS 05:33
PROVIDERS: ATTEND Student in an Organized Health Care Education/Training Program
DX: K40.90 Unilateral inguinal hernia, without obstruction or gangrene, not specified as recurrent (principal); N43.0 Encysted hydrocele; D17.6 Benign lipomatous neoplasm of spermatic cord; I10 Essential (primary) hypertension; E78.5 Hyperlipidemia, unspecified; E66.01 Morbid (severe) obesity due to excess calories; Z68.30 Body mass index [BMI] 30.0-30.9, adult; Z79.899 Other long term (current) drug therapy; Z79.01 Long term (current) use of anticoagulants; Z72.89 Other problems related to lifestyle; Z20.822 Contact with and (suspected) exposure to COVID-19; Z98.890 Other specified postprocedural states; Z96.659 Presence of unspecified artificial knee joint; Z80.42 Family history of malignant neoplasm of prostate
CPT/HCPCS: 36415; 49650; 55041; 80053; 82948; 85025; 85610; 85730; C1758; C1781; C9399; J0131; J1100; J2001; J2250; J2405; J2704; J3010; J3490; U0003; U0005; Z7506; Z7508; Z7512; A4215; A4618; A6449; A7000; J7120

== ENCOUNTER 2023-10-11 10:59 | Emergency (ER) | payer MEDICARE ==
[~2023-10-11] VITALS: Ht 175.3 cm; Wt 94.5 kg
[~2023-10-11 10:59] MED LIST changes: -DOCUMENT DATE & TIME OF BETA-BLOCKER PO ONE; -cefazolin/dext.iso 2gm/100ml IV ONE; -famotidine 20mg tablet PO ONE; -ringers solution, lacted 1,000 ML IV SCH
[2023-10-11 11:08] VITALS: TEMP 99.4
[2023-10-11 11:55] LABS: BASOPHILS % (AUTO) 0.4 % (0-1); EOSINOPHILS % (AUTO) 0.1 % (0-6); HEMATOCRIT 40.4 % (42.0-52.0); HEMOGLOBIN 13.9 g/dl (14.0-17.9); LYMPHOCYTES % (AUTO) 12.7 % (21-51); MEAN CORPUSCULAR HEMOGLOBIN 33.4 PG (27.0-31.0); MEAN CORPUSCULAR HGB CONC 34.5 g/dL (33.0-36.5); MEAN CORPUSCULAR VOLUME 96.9 FL (78-98); MONOCYTES # (AUTO) 0.8 X10'3 (0-0.9); NEUTROPHILS # (AUTO) 6.2 X10'3 (1.8-7.7); NEUTROPHILS % (AUTO) 76.8 % (42-75); PLATELET COUNT 160 X10'3 (140-440); RED BLOOD COUNT 4.17 X10'6 (4.70-6.10); RED CELL DISTRIBUTION WIDTH 13.3 % (11.5-14.5)
[2023-10-11 12:08] LABS: ALANINE AMINOTRANSFERASE 14 U/L (12-78); ALBUMIN 3.2 G/DL (3.4-5.0); ALBUMIN/GLOBULIN RATIO 0.8 (1.1-1.5); ALKALINE PHOSPHATASE 55 IU/L (46-116); ANION GAP 7 (8-16); ASPARTATE AMINO TRANSFERASE 14 U/L (10-37); BILIRUBIN,TOTAL 0.6 MG/DL (0.1-1.0); BLOOD UREA NITROGEN 12 MG/DL (7-18); BUN/CREATININE RATIO 11.5 (10.0-20.0); CALCIUM 8.4 MG/DL (8.5-10.1); CHLORIDE 99 MMOL/L (99-107); CREATININE 1.04 MG/DL (0.60-1.10); GLUCOSE 111 MG/DL (70-104); POTASSIUM 3.2 MMOL/L (3.5-5.1); SODIUM 137 MMOL/L (135-145); TOTAL CARBON DIOXIDE 30.7 MMOL/L (24-32); TOTAL PROTEIN 7.4 G/DL (6.4-8.2); eCRCL 55 ML/MIN; eGFR 68 ML/MIN
[2023-10-11 12:27] LABS: PRO BRAIN NATRIURETIC PEPTIDE 623 PG/ML (0-450)
[2023-10-11 13:37] VITALS: PULSE 67
[2023-10-11 13:41] VITALS: RESP 13
[2023-10-11 15:07] LABS: STREP A SCREEN NEGATIVE (Neg)
[2023-10-11 15:09] LABS: INR 1.1 INR; PROTHROMBIN TIME 11.6 SECONDS (9.0-12.0)
[2023-10-11] MEDS ORDERED: NIRM1TAB9 PO (15:27)
[2023-10-11 15:41] VITALS: BP 169/60; O2SAT 95
== END 2023-10-11 15:46 | disposition home or self-care (01) ==
LOC: ER 10:59
DX: U07.1 COVID-19 (principal); E78.00 Pure hypercholesterolemia, unspecified; I10 Essential (primary) hypertension; F10.90 Alcohol use, unspecified, uncomplicated
CPT/HCPCS: 36415; 71045; 80053; 83605; 83880; 84484; 85025; 85610; 87040; 87081; 87502; 87503; 87811; 87880; 93005; 99285